=== PATIENT | male | born 1985 | race Caucasian/White ===

== ENCOUNTER 2020-03-25 14:59 | Emergency (ER) | payer BC ==
[~2020-03-25] VITALS: Ht 172.7 cm; Wt 77.3 kg
[2020-03-25] MEDS ORDERED: ALBUTEROL SULFATE HFA 90 MCG/PUFF 8 GM INHALER IH ONE (16:30)
[2020-03-25 16:55] VITALS: BP 134/77
== END 2020-03-25 16:56 | disposition home or self-care (01) ==
LOC: EMS 15:08
DX: R05 Cough (principal); R53.83 Other fatigue; Z20.828 Contact with and (suspected) exposure to other viral communicable diseases; Z87.891 Personal history of nicotine dependence
CPT/HCPCS: 94640; 99283; U0003; J3535